=== PATIENT | male | born 1985 | race African-American/Black ===

== ENCOUNTER 2019-07-19 10:02 | Emergency (ER) | payer OTHER ==
[2019-07-19] MEDS ORDERED: ONDANSETRON 4 MG/2 ML VIAL IVPUSH ONE (10:15)
[2019-07-19] MEDS ORDERED: SODIUM CHLORIDE 0.9% 1000 ML INFUS.BAG IV ONE (10:15)
[2019-07-19 10:23] VITALS: BMI 29.0
[2019-07-19] MEDS ORDERED: FAMOTIDINE 20 MG/50 ML IVPB 20 MG/50 ML MG IVPB ONE ×2 (10:33→10:35)
[2019-07-19] MEDS ORDERED: ONDANSETRON 4 MG/2 ML VIAL ONE (10:35)
[2019-07-19] MEDS ORDERED: ACETAMINOPHEN 1000 MG/100 ML VIAL (NON FORMULARY) IVPB ONE (10:51)
[2019-07-19] MEDS ORDERED: ACETAMINOPHEN INJECTION 100 ML IVPB ONE (10:51)
--- NOTE | 2019-07-19 10:51 | PDOC ---
Documentation entered by Yecenia Boone SCRIBE, acting as scribe for Yemi Zavala MD. Yemi Zavala MD: This documentation has been prepared by the Paolo weber Xhesika, SCRIBE, under my direction and personally reviewed by me in its entirety. I confirm that the documentation accurately reflects all work, treatment, procedures, and medical decision making performed by me. History of Present Illness - General Chief Complaint: Nausea/Vomiting Stated Complaint: R/O ALCOHOL POISONING Time Seen by Provider: 07/19/19 10:14 History Source: Patient Exam Limitations: No Limitations - History of Present Illness Initial Comments: 07/19/19 10:24 The patient is a 33 year old male with no PMH of who presents to the ED for abdominal pain associated with nausea, vomiting, and diarrhea since last night. The patient reports multiple episodes of nbnb vomiting through the night. The patient states he was drinking last night. The patient denies shortness of breath, headache and dizziness. Denies fever, chills, cough, and constipation. Denies dysuria, frequency, urgency and hematuria. Allergies:, NKDA Social Hx: Denies current smoking, drinking, or other substance usage. Past History - Past Medical History Allergies/Adverse Reactions: Allergies Allergy/AdvReac Type Severity Reaction Status Date / Time No Known Allergies Allergy Verified 07/19/19 10:09 Home Medications: Ambulatory Orders Ondansetron [Zofran *Odt*] 8 mg SL TID #14 od.tablet 07/19/19 COPD: No Hypercholesterolemia: No - Immunization History Immunization Up to Date: No - Psycho Social/Smoking Cessation Hx Smoking History: Unknown if ever smoked Have you smoked in the past 12 months: No Information on smoking cessation initiated: No Hx Alcohol Use: No Drug/Substance Use Hx: No Review of Systems - Review of Systems Able to Perform ROS?: Yes Comments:: 07/19/19 10:26 A complete review of 10 out of 10 review of systems is taken and is negative apart from what is previously mentioned below and in the HPI. *Physical Exam - Vital Signs Last Vital Signs Temp Pulse Resp BP Pulse Ox 97.6 F 75 18 123/75 100 07/19/19 10:05 07/19/19 10:07/19/19 10:07/19/19 10:07/19/19 10:05 - Physical Exam 07/19/19 10:26 Vitals: Triage Vital signs reviewed General Appearance: no acute distress, well nourished well developed, Neck: Supple;No Nuchal rigidity Chest Wall: Nontender Cardiac: Regular rate and rhythm, no murmurs, no rubs, no gallops, Lungs: Clear to auscultation bilateral, good air movement bilaterally, Abdomen: Soft, nondistended, normal bowel sounds, nontender to palpation Extremities: Full range of motion to all extremities, no cyanosis, clubbing, or edema Skin: Warm and dry, no rashes or lesions, no petechiae ED Treatment Course - LABORATORY CBC & Chemistry Diagram: 07/19/19 10:49 07/19/19 10:49 Medical Decision Making - Medical Decision Making 07/19/19 10:53 33 years old with no significant past medical history presents to the ED with uncontrollable vomiting in the context of drinking too much last night started vomiting at approximately 2 AM has been unable to tolerate fluids since then. Complaining of crampy abdominal discomfort which started after the vomiting no travel no sick contacts We will hydrate check labs antiemetics observe and reassess 07/19/19 13:51 Reevaluation after antiemetics patient now tolerating fluids still complaining of stomach burning but there is no abdominal pain tenderness or rebound on his repeat examination he is afebrile with no elevated white blood cell count history and examination most consistent with alcoholic gastritis secondary from drinking too much last night on an empty stomach per the patient We will discharge home with a prescription for Zofran he will do fluids only for the next 24 hours he will return to the ED immediately for any severe worsening abdominal pain any fever inability to tolerate fluids or for any concerns. Discharge - Discharge Information Problems reviewed: Yes Clinical Impression/Diagnosis: Nausea & vomiting Qualifiers: Vomiting type: unspecified Vomiting Intractability: non-intractable Qualified Code(s): R11.2 - Nausea with vomiting, unspecified Condition: Stable - Admission No - Follow up/Referral - Patient Discharge Instructions Patient Printed Discharge Instructions: DI for Vomiting -- Adult, DI for Nausea -- Adult Additional Instructions: Take Zofran as prescribed. For the next 24 hours fluids only small sips. No food. If no vomiting after 24 hours okay to proceed to a very bland diet Return to the emergency department immediately for inability to tolerate fluids severe uncontrollable abdominal pain any fever or for any concerns. - Post Discharge Activity Work/Back to School Note: Back to Work
[2019-07-19 11:14] LABS: BASO % 0.5 % (0-2.0); EOS % 0.3 % (0-4.5); HEMATOCRIT 45.7 % (35.4-49); LYMPH % 19.1 % (8-40); MCH 27.9 pg (25.7-33.7); MCHC 32.9 g/dl (32.0-35.9); MEAN CELL VOLUME 84.6 fl (80-96); MEAN PLT VOLUME 8.5 fl (7.5-11.1); NEUT % 75.1 % (42.8-82.8); PLATELET COUNT 281 K/MM3 (134-434); RDW 13.9 % (11.9-15.9); WHITE BLOOD COUNT 8.8 K/mm3 (4.0-10.0)
[2019-07-19 11:57] LABS: ALBUMIN 4.3 g/dl (3.4-5.0); BILIRUBIN,TOTAL 0.8 mg/dL (0.2-1); BLOOD UREA NITROGEN 11.5 mg/dL (7-18); CALCIUM 9.9 mg/dL (8.5-10.1); CREATININE 1.1 mg/dL (0.55-1.3); POTASSIUM 4.1 mmol/L (3.5-5.1); TOT PROT 7.9 g/dl (6.4-8.2)
[2019-07-19] MEDS ORDERED: METOCLOPRAMIDE HCL INJECTION 10 MG/2 ML VIAL IVPB ONE (12:44)
[2019-07-19] MEDS ORDERED: METOCLOPRAMIDE HCL INJECTION 10 MG/2 ML VIAL ONE (12:46)
[2019-07-19 13:46] VITALS: BP 141/97; PULSE 66; TEMP 97.9
== END 2019-07-19 14:23 | disposition home or self-care (01) ==
LOC: JER 10:02
PROC: 3E033GC Introduction of Other Therapeutic Substance into Peripheral Vein, Percutaneous Approach (ICD-10-PCS; principal; 2019-07-19)
PROC: 3E033NZ Introduction of Analgesics, Hypnotics, Sedatives into Peripheral Vein, Percutaneous Approach (ICD-10-PCS; 2019-07-19)
DX: R11.2 Nausea with vomiting, unspecified (principal)
CPT/HCPCS: 36415; 80053; 83690; 85025; 99283-25; J0131; J7030

== ENCOUNTER 2020-03-21 13:53 | Emergency (ER) | payer OTHER ==
[2020-03-21 13:57] VITALS: TEMP 97.5; BMI 29.8
[2020-03-21] MEDS ORDERED: morphine CARPU-JECT 4 MG/1 ML DISP.SYRIN IVPUSH ONE (14:17)
[2020-03-21] MEDS ORDERED: ONDANSETRON 4 MG/2 ML VIAL IVPUSH ONE ×2 (14:17→18:00)
[2020-03-21] MEDS ORDERED: SODIUM CHLORIDE 1,000 ML IV STA ×2 (14:17→16:30)
--- NOTE | 2020-03-21 14:23 | PDOC ---
History of Present Illness - General Chief Complaint: Pain, Acute Stated Complaint: ABD PAIN Time Seen by Provider: 03/21/20 14:00 History Source: Patient Exam Limitations: No Limitations - History of Present Illness Travel History: No Initial Comments: 03/21/20 14:19 HISTORY OF PRESENT ILLNESS: 34-year-old male denies medical history presents emergency department for evaluation of nausea and vomiting with diffuse abdominal pain since awakening this morning. Patient reports he had [employer] for dinner and when he got home from dinner he felt hungry and had some Cheerios with milk. Woke up this morning with the pain which he describes as a sharp cramping sensation throughout his abdomen rated 10/10. Patient reports the inability to tolerate p.o.'s including water and has had nonbilious nonbloody vomiting today. He denies any diarrhea, rectal bleeding, constipation, chest pain, shortness of breath, urinary symptoms. No recent travel or sick contacts. PAST MEDICAL HISTORY: Denies past medical history SURGICAL HISTORY: Denies ALLERGIES: No known drug allergies REVIEW OF SYSTEMS General/Constitutional: Denies fever or chills. Denies weakness, weight change. HEENT: Denies change in vision. Denies ear pain or discharge. Denies sore th roat. Cardiovascular: Denies chest pain or shortness of breath. Respiratory: Denies cough, wheezing, or hemoptysis. Gastrointestinal: See HPI Genitourinary: Denies dysuria, frequency, or change in urination. Musculoskeletal: Denies joint or muscle swelling or pain. Denies neck or back pain. Skin and breasts: Denies rash or easy bruising. Neurologic: Denies headache, vertigo, loss of consciousness, or loss of sensation. Psychiatric: Denies depression or anxiety. Endocrine: Denies increased thirst. Denies abnormal weight change. Hematologic/Lymphatic: Denies anemia, easy bleeding, or history of blood clots. Allergic/Immunologic: Denies hives or skin allergy. Denies latex allergy. PHYSICAL EXAM General Appearance: Well-appearing, appropriately dressed. No apparent distress, no intoxication. Respiratory/Chest: Lungs CTAB. No shortness of breath, chest tenderness, respiratory distress, accessory muscle use. No crackles, rales, rhonchi, stridor, wheezing, dullness Cardiovascular: RRR. S1, S2. No JVD, murmur, bradycardia, tachycardia. Vascular Pulses: Dorsalis-Pedis (R): 2+, Dorsalis-Pedis (L): 2+ Gastrointestinal/Abdominal: Normal bowel sounds. Abdomen soft, non-distended. No tenderness or rebound tenderness. No organomegaly, pulsatile mass, guarding, hernia, hepatomegaly, splenomegaly. Past History - Medical History Allergies/Adverse Reactions: Allergies Allergy/AdvReac Type Severity Reaction Status Date / Time No Known Allergies Allergy Verified 03/21/20 13:54 Home Medications: Ambulatory Orders Ondansetron [Zofran *Odt*] 8 mg SL TID #14 od.tablet 03/21/20 COPD: No Hypercholesterolemia: No - Immunization History Immunization Up to Date: No - Psycho-Social/Smoking History Smoking History: Current every day smoker Have you smoked in the past 12 months: No Number of Cigarettes Smoked Daily: 3 Information on smoking cessation initiated: No - Substance Abuse Hx (Audit-C & DAST Scrn) How often the patient has a drink containing alcohol: 2-4 times / month Score: In Men: 4 or > Positive; In Women: 3 or > Positive: 2 Screen Result (Pos requires Nsg. Audit-10AR): Negative In the last yr the pt used illegal drug/Rx for NonMed reason: No Score: Yes response is considered Positive: 0 Screen Result (Positive result requires Nsg. DAST-10): Negative *Physical Exam - Vital Signs Last Vital Signs Temp Pulse Resp BP Pulse Ox 97.5 F L 79 18 138/78 100 03/21/20 13:54 03/21/20 13:54 03/21/20 13:54 03/21/20 13:54 03/21/20 13:54 ED Treatment Course - LABORATORY CBC & Chemistry Diagram: 03/21/20 14:30 03/21/20 14:34 Medical Decision Making - Medical Decision Making 03/21/20 14:22 A/P: 34-year-old male with diffuse abdominal pain nausea and vomiting after eating [employer] and Cheerios for dinner Abdomen soft nontender nondistended No CVA tenderness appreciated Differential diagnosis includes but is not limited to-renal calculi, gastroenteritis, appendicitis, obstruction, perforation. Less likely appendicitis, obstruction or perforation as patient has a benign abdominal exam. Basic labs Urinalysis Normal saline 1 L IV bolus Morphine 4 mg IV push Zofran 4 mg IV push Low threshold for imaging pending laboratory testing 03/21/20 16:31 Patient still with some mild vomiting. Abdomen remains benign. Reglan 10 mg IV push Normal saline 1 L IV bolus Reassess 03/21/20 17:50 Laboratory Tests 03/21/20 03/21/20 03/21/20 14:30 14:34 17:00 WBC 9.2 RBC 5.40 Hgb 15.0 Hct 46.3 MCV 85.7 MCH 27.7 MCHC 32.4 RDW 13.7 Plt Count 248 MPV 8.9 Absolute Neuts (auto) 7.6 Neutrophils % 82.5 Lymphocytes % 13.5 D Monocytes % 3.7 L Eosinophils % 0.1 Basophils % 0.2 Nucleated RBC % 0 Sodium 141 Potassium 3.7 Chloride 107 Carbon Dioxide 25 Anion Gap 9 BUN 12.2 Creatinine 1.2 Est GFR (CKD-EPI)AfAm 91.53 Est GFR (CKD-EPI)NonAf 78.97 Random Glucose 150 H Calcium 9.9 Total Bilirubin 0.5 AST 15 ALT 21 Alkaline Phosphatase 76 Total Protein 8.2 Albumin 4.3 Lipase 109 Urine Color Yellow Urine Appearance Clear Urine pH >= 9.0 H Ur Specific [place] 1.015 Urine Protein Negative Urine Glucose (UA) Negative Urine Ketones Negative Urine Blood Negative Urine Nitrite Negative Urine Bilirubin Negative Urine Urobilinogen 0.2 Ur Leukocyte Esterase Negative Patient continues to vomit. CT of the abdomen and pelvis with IV contrast ordered. 03/21/20 20:56 Prior to signing out AGAINST MEDICAL ADVICE patient's CAT scan results returned as follows: CT scan is read by Dr. Webb: No definite CT findings of acute abnormality are identified. Discharge home I discussed the physical exam findings, ancillary test results and final diagnoses with the patient. I answered all of the patient's questions. The pat ient was satisfied with the care received and felt comfortable with the discharge plan and treatment plan. The patient will call their primary care physician within 24 hours to arrange follow-up and will return to the Emergency Department with any new, persistent or worsening symptoms. Portions of this note have been documented using voice recognition software. As a result, errors may occur in the adolescent psychiatrist process. Effort has been made to correct all grammatical and adolescent psychiatrist error, but some may have been missed which may produce sporadic inaccurate adolescent psychiatrist or nonsensical phrases. Discharge - Discharge Information Problems reviewed: Yes Clinical Impression/Diagnosis: Nausea & vomiting Qualifiers: Vomiting type: unspecified Vomiting Intractability: unspecified Qualified Code(s): R11.2 - Nausea with vomiting, unspecified Condition: Fair Disposition: AGAINST MEDICAL ADVICE - Admission No - Additional Discharge Information Prescriptions: Ondansetron [Zofran *Odt*] 8 mg SL TID #14 od.tablet - Follow up/Referral - Patient Discharge Instructions Additional Instructions: Rest, drink lots of fluids: Teas, water, soups [place], carbonated beverages for the bubbles May try peppermint teas Avoid heavy , spicy or fatty foods until symptoms have resolved Avoid contact with others until fevers and symptoms resolved Lots of handwashing and good hygiene Continue [id number] medications for symptomatic relief Tylenol or Motrin for fever and pain Followup with private physician in one to 2 days as needed Return to emergency department for worsened symptoms, fevers, dehydration - Post Discharge Activity
[2020-03-21] MEDS ORDERED: MORPHINE SULFATE 2 MG/ML VIAL ONE (14:37)
[2020-03-21 15:07] LABS: BASO % 0.2 % (0-2.0); EOS % 0.1 % (0-4.5); HEMATOCRIT 46.3 % (35.4-49); LYMPH % 13.5 % (8-40); MCH 27.7 pg (25.7-33.7); MCHC 32.4 g/dl (32.0-35.9); MEAN CELL VOLUME 85.7 fl (80-96); MEAN PLT VOLUME 8.9 fl (7.5-11.1); MONO % 3.7 % (3.8-10.2); NEUT % 82.5 % (42.8-82.8); PLATELET COUNT 248 K/MM3 (134-434); RDW 13.7 % (11.9-15.9); WHITE BLOOD COUNT 9.2 K/mm3 (4.0-10.0)
[2020-03-21 15:34] LABS: ALBUMIN 4.3 g/dl (3.4-5.0); BLOOD UREA NITROGEN 12.2 mg/dL (7-18); CALCIUM 9.9 mg/dL (8.5-10.1); CREATININE 1.2 mg/dL (0.55-1.3); POTASSIUM 3.7 mmol/L (3.5-5.1); TOT PROT 8.2 g/dl (6.4-8.2)
[2020-03-21 15:53] LABS: BILIRUBIN,TOTAL 0.5 mg/dL (0.2-1)
[2020-03-21] MEDS ORDERED: METOCLOPRAMIDE HCL INJECTION 10 MG/2 ML VIAL IVPUSH ONE (16:30)
[2020-03-21] MEDS ORDERED: METOCLOPRAMIDE HCL INJECTION 10 MG/2 ML VIAL ONE (16:31)
[2020-03-21 17:49] LABS: PH,URINE >= 9.0 (5.0-8.0); URINE APPEARANCE CLEAR; URINE BILIRUBIN NEGATIVE (NEGATIVE); URINE COLOR YELLOW; URINE GLUCOSE (UA) NEGATIVE (NEGATIVE); URINE KETONE NEGATIVE (NEGATIVE); URINE LEUK ESTERASE NEGATIVE (NEGATIVE); URINE NITRITE NEGATIVE (NEGATIVE); URINE PROTEIN NEGATIVE (NEGATIVE); URINE UROBILINOGEN 0.2 mg/dL (0.2-1.0)
[2020-03-21 21:14] VITALS: BP 122/76; PULSE 78
== END 2020-03-21 21:15 | disposition home or self-care (01) ==
LOC: JER 13:53
PROC: 3E033NZ Introduction of Analgesics, Hypnotics, Sedatives into Peripheral Vein, Percutaneous Approach (ICD-10-PCS; principal; 2020-03-21)
PROC: 3E033GC Introduction of Other Therapeutic Substance into Peripheral Vein, Percutaneous Approach (ICD-10-PCS; 2020-03-21)
PROC: 3E0337Z Introduction of Electrolytic and Water Balance Substance into Peripheral Vein, Percutaneous Approach (ICD-10-PCS; 2020-03-21)
DX: R11.2 Nausea with vomiting, unspecified (principal)
CPT/HCPCS: 36415; 74177-TC; 80053; 81003; 83690; 85025; 99285-25; Q9967

== ENCOUNTER 2022-10-02 08:57 | Emergency (ER) | payer OTHER ==
[2022-10-02 09:06] VITALS: RESP 20; BMI 28.0
[2022-10-02] MEDS ORDERED: MAG HYDROX/AL HYDROX/SIMETH -MYLANTA- ORAL SUSPENSION PO ONE (09:41)
[2022-10-02] MEDS ORDERED: FAMOTIDINE 20 MG/50 ML IVPB 20 MG/50 ML MG IVPB ONE ×2 (09:41→09:50)
[2022-10-02] MEDS ORDERED: LACTATED RINGERS SOLUTION 1000 ML INFUS.BAG IV ONE ×3 (09:41→15:20)
[2022-10-02] MEDS ORDERED: THIAMINE HCL 200 MG/2 ML VIAL IVPB ONE (09:42)
[2022-10-02] MEDS ORDERED: ONDANSETRON 4 MG/2 ML VIAL IVPUSH ONE (09:47)
[2022-10-02] MEDS ORDERED: MAG HYDROX/AL HYDROX/SIMETH 30 ML UNIT-DOSE CUP ONE (09:50)
[2022-10-02] MEDS ORDERED: THIAMINE HCL 200 MG/2 ML VIAL ONE (09:50)
[2022-10-02] MEDS ORDERED: ONDANSETRON 4 MG/2 ML VIAL ONE (10:25)
[2022-10-02 10:44] LABS: BASO % 0.5 % (0-2.0); EOS % 0.1 % (0-4.5); HEMATOCRIT 44.6 % (35.4-49); HEMOGLOBIN 14.7 GM/dL (11.7-16.9); LYMPH % 8.2 % (8-40); MCH 27.7 pg (25.7-33.7); MEAN PLT VOLUME 8.4 fl (7.5-11.1); MONO % 5.2 % (3.8-10.2); PLATELET COUNT 290 10^3/uL (134-434); RBC 5.31 M/mm3 (4.00-5.60); RDW 13.6 % (11.9-15.9); WHITE BLOOD COUNT 15.5 K/mm3 (4.0-10.0)
[2022-10-02 11:01] LABS: CALCIUM 10.1 mg/dL (8.5-10.1); CHLORIDE 106 mmol/L (98-107); SODIUM 140 mmol/L (136-145)
[2022-10-02 11:02] LABS: ALBUMIN 4.5 g/dl (3.4-5.0); ANION GAP 10 MMOL/L (8-16); BLOOD UREA NITROGEN 12.7 mg/dL (7-18); CO2 23 mmol/L (21-32); GLUCOSE,RANDOM 143 mg/dL (74-106)
[2022-10-02 11:04] LABS: AMYLASE 67 U/L (25-115); LIPASE 83 U/L (73-393)
[2022-10-02 11:05] LABS: CREATININE 1.2 mg/dL (0.55-1.3); SGOT/AST 21 U/L (15-37); SGPT/ALT 39 U/L (13-61)
[2022-10-02 11:06] LABS: TOT PROT 8.4 g/dl (6.4-8.2)
[2022-10-02 11:07] LABS: ALK PHOS 75 U/L (45-117); BILIRUBIN,TOTAL 0.6 mg/dL (0.2-1)
[2022-10-02 11:10] LABS: LACTIC ACID 4.8 mmol/L (0.4-2.0)
[2022-10-02] MEDS ORDERED: DEXTROSE 5%-NORMAL SALINE 1,000 ML IV SCH (11:45)
[2022-10-02 15:09] LABS: LACTIC ACID 3.5 mmol/L (0.4-2.0)
[2022-10-02] MEDS ORDERED: ACETAMINOPHEN INJECTION 100 ML IVPB ONE (15:19)
[2022-10-02] MEDS ORDERED: ACETAMINOPHEN 1000 MG/100 ML BAG IVPB ONE (15:19)
[2022-10-02 17:26] VITALS: BP 152/99; PULSE 113; TEMP 99.1
[2022-10-02 18:33] LABS: VENOUS BASE EXCESS 0.5 mmol/L (-2-2); VENOUS O2 SATURATION 65.3 % (70-80); VENOUS PCO2 43.5 mmHg (38-52); VENOUS PH 7.39 (7.310-7.410)
[2022-10-02 18:36] LABS: LACTIC ACID 2.4 mmol/L (0.4-2.0)
[2022-10-02 19:35] LABS: URINE APPEARANCE CLEAR; URINE BILIRUBIN NEGATIVE (NEGATIVE); URINE COLOR YELLOW; URINE GLUCOSE (UA) NEGATIVE (NEGATIVE); URINE KETONE NEGATIVE (NEGATIVE)
[2022-10-02 19:36] LABS: URINE LEUK ESTERASE NEGATIVE (NEGATIVE); URINE NITRITE NEGATIVE (NEGATIVE); URINE PROTEIN NEGATIVE (NEGATIVE); URINE UROBILINOGEN 0.2 mg/dL (0.2-1.0)
== END 2022-10-02 19:31 | disposition home or self-care (01) ==
LOC: JER 08:57
PROC: 3E033GC Introduction of Other Therapeutic Substance into Peripheral Vein, Percutaneous Approach (ICD-10-PCS; principal; 2022-10-02)
PROC: 3E033NZ Introduction of Analgesics, Hypnotics, Sedatives into Peripheral Vein, Percutaneous Approach (ICD-10-PCS; 2022-10-02)
PROC: 3E033GC Introduction of Other Therapeutic Substance into Peripheral Vein, Percutaneous Approach (ICD-10-PCS; 2022-10-02)
PROC: 3E033GC Introduction of Other Therapeutic Substance into Peripheral Vein, Percutaneous Approach (ICD-10-PCS; 2022-10-02)
PROC: 3E033GC Introduction of Other Therapeutic Substance into Peripheral Vein, Percutaneous Approach (ICD-10-PCS; 2022-10-02)
DX: K51.90 Ulcerative colitis, unspecified, without complications (principal); F10.988 Alcohol use, unspecified with other alcohol-induced disorder; E87.20 Acidosis, unspecified
CPT/HCPCS: 36415; 74177-TC; 76705-TC; 80053; 80307; 81003; 82150; 82803; 82962; 83605; 83690; 85025; 87086; 99285-25; Q9967

== ENCOUNTER 2023-03-14 07:58 | Emergency (ER) | payer OTHER ==
[2023-03-14 08:09] VITALS: RESP 18; BMI 28.0
[2023-03-14] MEDS ORDERED: ONDANSETRON 4 MG/2 ML VIAL IVPUSH ONE (08:28)
[2023-03-14] MEDS ORDERED: ACETAMINOPHEN 1000 MG/100 ML BAG IVPB ONE (08:28)
[2023-03-14] MEDS ORDERED: SODIUM CHLORIDE 0.9% 500 ML INFUS.BAG IV ONE ×2 (08:28→10:34)
[2023-03-14] MEDS ORDERED: HALOPERIDOL LACTATE 5 MG/ML IM ONE ×2 (08:31→08:35)
[2023-03-14] MEDS ORDERED: FAMOTIDINE 20 MG/50 ML IVPB 20 MG/50 ML MG IVPB ONE ×2 (08:32→08:36)
[2023-03-14] MEDS ORDERED: MAG HYDROX/AL HYDROX/SIMETH 30 ML UNIT-DOSE CUP PO ONE (08:32)
[2023-03-14] MEDS ORDERED: ONDANSETRON 4 MG/2 ML VIAL ONE (08:33)
[2023-03-14] MEDS ORDERED: ACETAMINOPHEN INJECTION 100 ML IVPB ONE (08:35)
[2023-03-14] MEDS ORDERED: MAG HYDROX/AL HYDROX/SIMETH 30 ML UNIT-DOSE CUP ONE (08:36)
[2023-03-14 09:06] LABS: BASO % 1.9 % (0-2.0); EOS % 0.9 % (0-4.5); HEMATOCRIT 47.6 % (35.4-49); HEMOGLOBIN 15.4 GM/dL (11.7-16.9); LYMPH % 32.6 % (8-40); MCH 27.4 pg (25.7-33.7); MCHC 32.3 g/dl (32.0-35.9); MEAN CELL VOLUME 84.7 fl (80-96); NEUT % 57.6 % (42.8-82.8); PLATELET COUNT 324 10^3/uL (134-434); RBC 5.62 M/mm3 (4.00-5.60); RDW 13.8 % (11.9-15.9); WHITE BLOOD COUNT 10.2 K/mm3 (4.0-10.0)
[2023-03-14 09:34] LABS: POTASSIUM 3.6 mmol/L (3.5-5.1)
[2023-03-14 09:35] LABS: CALCIUM 10.1 mg/dL (8.5-10.1)
[2023-03-14 09:36] LABS: ALBUMIN 4.4 g/dl (3.4-5.0); BLOOD UREA NITROGEN 23.5 mg/dL (7-18)
[2023-03-14 09:40] LABS: CREATININE 1.5 mg/dL (0.55-1.3); TOT PROT 8.4 g/dl (6.4-8.2)
[2023-03-14 09:41] LABS: BILIRUBIN,TOTAL 0.6 mg/dL (0.2-1)
[2023-03-14] MEDS ORDERED: SUCRALFATE 1 GM TABLET (FP) PO ONE (10:04)
[2023-03-14] MEDS ORDERED: SUCRALFATE 1 GM TABLET (FP) ONE (10:06)
[2023-03-14 11:10] LABS: PH,URINE 6.5 (5.0-8.0); URINE APPEARANCE CLEAR; URINE BILIRUBIN NEGATIVE (NEGATIVE); URINE COLOR YELLOW; URINE GLUCOSE (UA) NEGATIVE (NEGATIVE); URINE KETONE 1+ (NEGATIVE); URINE LEUK ESTERASE NEGATIVE (NEGATIVE); URINE NITRITE NEGATIVE (NEGATIVE); URINE PROTEIN NEGATIVE (NEGATIVE); URINE UROBILINOGEN 0.2 mg/dL (0.2-1.0)
[2023-03-14] MEDS ORDERED: KETOROLAC TROMETHAMINE 15 MG/ML VIAL IVPUSH ONE (11:13)
[2023-03-14] MEDS ORDERED: KETOROLAC TROMETHAMINE 15 MG/ML VIAL ONE (11:24)
[2023-03-14 12:45] VITALS: BP 148/100; PULSE 89; TEMP 97.4
== END 2023-03-14 12:53 | disposition home or self-care (01) ==
LOC: JER 07:58
PROC: 3E033GC Introduction of Other Therapeutic Substance into Peripheral Vein, Percutaneous Approach (ICD-10-PCS; principal; 2023-03-14)
PROC: 3E033GC Introduction of Other Therapeutic Substance into Peripheral Vein, Percutaneous Approach (ICD-10-PCS; 2023-03-14)
PROC: 3E033GC Introduction of Other Therapeutic Substance into Peripheral Vein, Percutaneous Approach (ICD-10-PCS; 2023-03-14)
PROC: 3E023GC Introduction of Other Therapeutic Substance into Muscle, Percutaneous Approach (ICD-10-PCS; 2023-03-14)
DX: R11.2 Nausea with vomiting, unspecified (principal); R10.84 Generalized abdominal pain
CPT/HCPCS: 36415; 80053; 81003; 83690; 85025; 87086; 93005; 93010; 99284-25

== ENCOUNTER 2023-10-04 09:03 | Emergency (ER) | payer OTHER ==
[2023-10-04 09:15] VITALS: RESP 18; BMI 25.8
[2023-10-04] MEDS ORDERED: ACETAMINOPHEN INJECTION 100 ML IVPB ONE (09:55)
[2023-10-04] MEDS ORDERED: ONDANSETRON 4 MG/2 ML VIAL ONE (09:55)
[2023-10-04] MEDS ORDERED: FAMOTIDINE 20 MG/50 ML IVPB 20 MG/50 ML MG IVPB ONE (09:55)
[2023-10-04] MEDS: ACETAMINOPHEN 1000 MG/100 ML BAG IVPB ONE (10:25)
[2023-10-04] MEDS: FAMOTIDINE 20 MG/50 ML IVPB 20 MG/50 ML MG IVPB ONE (10:25)
[2023-10-04] MEDS: SODIUM CHLORIDE 0.9% 500 ML INFUS.BAG IV ONE (10:25)
[2023-10-04] MEDS: ONDANSETRON 4 MG/2 ML VIAL IVPUSH ONE (10:25)
[2023-10-04 10:44] LABS: HEMATOCRIT 45.3 % (35.4-49); HEMOGLOBIN 14.9 GM/dL (11.7-16.9); MCH 27.5 pg (25.7-33.7); MEAN CELL VOLUME 83.4 fl (80-96); MEAN PLT VOLUME 8.3 fl (7.5-11.1); PLATELET COUNT 277 10^3/uL (134-434); RBC 5.43 M/mm3 (4.00-5.60); RDW 14.1 % (11.9-15.9); WHITE BLOOD COUNT 9.5 K/mm3 (4.0-10.0)
[2023-10-04 11:13] LABS: POTASSIUM 3.4 mmol/L (3.5-5.1)
[2023-10-04 11:15] LABS: ALBUMIN 4.1 g/dl (3.4-5.0); CALCIUM 9.8 mg/dL (8.5-10.1)
[2023-10-04 11:19] LABS: CREATININE 1.3 mg/dL (0.55-1.3)
[2023-10-04 11:20] LABS: BILIRUBIN,TOTAL 0.4 mg/dL (0.2-1)
[2023-10-04 11:21] LABS: TOT PROT 7.8 g/dl (6.4-8.2)
[2023-10-04 11:22] LABS: PHOSPHOROUS 1.2 mg/dL (2.5-4.9)
[2023-10-04] MEDS ORDERED: HALOPERIDOL LACTATE 5 MG/ML ONE (12:59)
[2023-10-04] MEDS: HALOPERIDOL LACTATE 5 MG/ML IM ONE (13:21)
[2023-10-04 14:17] VITALS: BP 159/89; PULSE 78; TEMP 97.6
== END 2023-10-04 14:10 | disposition home or self-care (01) ==
LOC: JER 09:03
PROC: 3E033GC Introduction of Other Therapeutic Substance into Peripheral Vein, Percutaneous Approach (ICD-10-PCS; principal; 2023-10-04)
PROC: 3E033GC Introduction of Other Therapeutic Substance into Peripheral Vein, Percutaneous Approach (ICD-10-PCS; 2023-10-04)
PROC: 3E033GC Introduction of Other Therapeutic Substance into Peripheral Vein, Percutaneous Approach (ICD-10-PCS; 2023-10-04)
PROC: 3E023GC Introduction of Other Therapeutic Substance into Muscle, Percutaneous Approach (ICD-10-PCS; 2023-10-04)
DX: F12.988 Cannabis use, unspecified with other cannabis-induced disorder (principal); R11.2 Nausea with vomiting, unspecified; R10.84 Generalized abdominal pain
CPT/HCPCS: 36415; 80053; 83690; 83735; 84100; 85027; 93005; 93010; 99284-25; J0131

== ENCOUNTER 2024-01-15 10:05 | Emergency (ER) | payer SELFPAY ==
[2024-01-15 10:13] VITALS: BP 143/79; PULSE 65; RESP 20; TEMP 97.7; BMI 27.7
[2024-01-15] MEDS: HALOPERIDOL LACTATE 5 MG/ML IM PRN (11:25)
[2024-01-15 11:46] LABS: BASO % 0.5 % (0-2.0); EOS % 0.3 % (0-4.5); HEMATOCRIT 42.9 % (35.4-49); HEMOGLOBIN 14.2 GM/dL (11.7-16.9); MCHC 33.1 g/dl (32.0-35.9); MEAN CELL VOLUME 84.7 fl (80-96); MEAN PLT VOLUME 7.4 fl (7.5-11.1); MONO % 4.3 % (3.8-10.2); NEUT % 85.9 % (42.8-82.8); PLATELET COUNT 275 10^3/uL (134-434); RBC 5.07 M/mm3 (4.00-5.60); RDW 13.5 % (11.9-15.9); WHITE BLOOD COUNT 11.1 K/mm3 (4.0-10.0)
[2024-01-15 12:10] LABS: ALBUMIN 4.4 g/dl (3.4-5.0); BLOOD UREA NITROGEN 20.5 mg/dL (7-18); CALCIUM 9.9 mg/dL (8.5-10.1)
[2024-01-15 12:13] LABS: CREATININE 1.1 mg/dL (0.55-1.3)
[2024-01-15 12:15] LABS: BILIRUBIN,TOTAL 0.4 mg/dL (0.2-1)
[2024-01-15] MEDS ORDERED: DOCUSATE SODIUM 100 MG CAPSULE (FP) PO ONE (13:11)
[2024-01-15] MEDS ORDERED: SENNOSIDES 8.8 MG/5 ML SYRUP PO ONE (13:17)
[2024-01-15] MEDS ORDERED: SENNOSIDES 8.8 MG/5 ML SYRUP PO SCH (22:00)
== END 2024-01-15 14:00 | disposition home or self-care (01) ==
LOC: JER 10:05
DX: F12.99 Cannabis use, unspecified with unspecified cannabis-induced disorder (principal); R11.10 Vomiting, unspecified
CPT/HCPCS: 36415; 80053; 83690; 83735; 85025; 93005; 93010; 99284-25

== ENCOUNTER 2025-05-08 11:25 | Emergency (ER) | payer OTHER ==
[2025-05-08 11:48] VITALS: BP 138/85; PULSE 96; RESP 17; TEMP 98.4; BMI 27.3
[2025-05-08] MEDS ORDERED: CEFTRIAXONE 1 GM/50 ML BAG ONE (12:47)
[2025-05-08] MEDS ORDERED: DOXYCYCLINE HYCLATE 100 MG TABLET PO ONE (12:56)
[2025-05-08 12:59] LABS: URINE APPEARANCE CLEAR; URINE BILIRUBIN NEGATIVE (NEGATIVE); URINE COLOR YELLOW; URINE GLUCOSE (UA) NEGATIVE (NEGATIVE); URINE KETONE NEGATIVE (NEGATIVE); URINE LEUK ESTERASE NEGATIVE (NEGATIVE); URINE NITRITE NEGATIVE (NEGATIVE); URINE PROTEIN NEGATIVE (NEGATIVE); URINE UROBILINOGEN 0.2 mg/dL (0.2-1.0)
[2025-05-08] MEDS: DOXYCYCLINE HYCLATE 100 MG TABLET PO ONE (13:06)
[2025-05-08 13:54] LABS: HCV DIAGNOSTIC IN-HOUSE W/RFLX NON-REACTIVE (NONREACTIVE); HIV INTERPRETATION NEGATIVE (NEGATIVE)
== END 2025-05-08 14:16 | disposition home or self-care (01) ==
LOC: JER 11:25
DX: N34.2 Other urethritis (principal); R10.30 Lower abdominal pain, unspecified
CPT/HCPCS: 36415; 81003; 86780; 86803; 87086; 87389; 87491; 87591; 87661; 96372; 99284-25